=== PATIENT | male | born 1995 | race Caucasian/White ===

== ENCOUNTER 2022-12-22 21:53 | Emergency (ER) | payer OTHER ==
[~2022-12-22 21:53] MED LIST: MIRALAX POWDER255 GM PO; MOTRIN400 MG PO
[2022-12-22] MEDS ORDERED: AMOX-CLAV 875-1 EACH PO (23:57)
== END 2022-12-23 00:15 | disposition home or self-care (01) ==
LOC: ED 21:53
DX: S91.332A Puncture wound without foreign body, left foot, initial encounter (principal); Z91.040 Latex allergy status; W54.0XXA Bitten by dog, initial encounter; Y93.89 Activity, other specified; Y92.89 Other specified places as the place of occurrence of the external cause; Y99.8 Other external cause status